=== PATIENT | female | born 1975 | race Two or more races ===

== ENCOUNTER 2017-03-11 12:33 | Day surgery (SDC) | payer BC ==
[~2017-03-11] VITALS: Ht 157.5 cm; Wt 60.3 kg
[2017-03-11] MEDS ORDERED: OMEP10CA4 PO (14:03)
[2017-03-11] MEDS ORDERED: LEVO25TA53 PO (14:03)
[2017-03-11 14:07] VITALS: Ht 157.5 cm; Wt 60.3 kg
[2017-03-11 14:29] VITALS: BP 110/67; PULSE 65; RESP 18
[2017-03-11] MEDS ORDERED: PROPOFOL 40 ML ONE (15:17)
[2017-03-11] MEDS ORDERED: FENTAnyl 50 MCG/ML VIAL ONE (15:17)
[2017-03-11] MEDS ORDERED: LIDOCAINE 100 MG SYRINGE ONE (15:17)
[2017-03-11 16:25] VITALS: BP 107/66; PULSE 66; RESP 17
--- NOTE | 2017-03-11 18:41 | GILP ---
DATE OF PROCEDURE: 03/11/2017 PROCEDURE: Esophagogastroduodenoscopy with biopsies. BRIEF HISTORY AND INDICATIONS: The patient is being evaluated for dyspepsia and episodes of melena. PREMEDICATION: Monitored anesthesia care by anesthesiologist. SURGEON: Tyrone Scott MD. INSTRUMENT USED: Olympus endoscope TECHNIQUE: After informed consent, with the patient/relatives understanding the procedure, its indic ations, potential risks and complications, including but not limited to: allergic reaction, bleeding , perforation or infection, and after all pertinent questions were answered to the patients satisfac tion, the patient/relatives signed witnessed informed consent. Following this, premedication was administered slowly IV push under careful cardiovascular and respi ratory monitoring with pulse oximetry, automatic blood pressure and surveillance monitor. Once the sedative effect was achieved the patient was place in the left lateral decubitus, the panen doscope was introduced and advanced under visual control. Careful examination of the upper gastrointestinal tract, both on insertion as well as withdrawal of the instrument disclosed the following findings: ESOPHAGUS: The mucosa of the entire esophagus appears within normal limits. There is no evidence of esophagitis, varices, neoplasm or stricture. No hiatal hernia identified. STOMACH: Upon entrance to the stomach air was insufflated, the gastric castro distended normally. The mucosa of the fundus, body, and antrum of the stomach was carefully examined and shows erythema and edema of the mucosa to a moderate degree. Biopsies were obtained to rule out H pylori infection. PYLORUS: The pylorus is patent and within normal limits, with no evidence of gastric outlet obstruct ion. DUODENUM: The duodenal bulb is unremarkable. The second portion of the duodenum appears somewhat at rophic. Biopsies were obtained to rule out celiac disease. The instrument was then withdrawn. We reexamined the mucosa in detail. No additional abnormalities were noted, The patient tolerated the procedure well and was transfer out of the endoscopy suite awake, and in g ood condition to continue recovery under observation IMPRESSION: 1. Gastritis, rule out Helicobacter pylori infection, biopsies obtained. 2. Rule out celiac disease, biopsies obtained. PLAN: The patient will be treated with PPIs. Further recommendation will depend on her clinical co urse as well as review of biopsies. Dictated By: TYRONE SCOTT MS/DAPHNE Conf#: [id number] DID#: [id number]
--- NOTE | 2017-03-11 18:53 | GILP ---
DATE OF PROCEDURE: 03/11/2017 DATE: 03/11/2017 NAME OF PROCEDURE: Colonoscopy with biopsies. SURGEON: Tyrone Scott MD. BRIEF HISTORY AND INDICATIONS: The patient with episodes of hematochezia. PREMEDICATION: Monitored anesthesia care by anesthesiologist. INSTRUMENT USED: Olympus colonoscope. PREPARATION: Adequate. TECHNIQUE: After informed consent, with the patient/relatives understanding the procedure, its indic ations potential risks and complications, including but not limited to: allergic reaction, bleeding, perforation, infection, missed lesions and after all pertinent questions were answered to the patie nt's satisfaction, the patient/relatives signed the witnessed informed consent. Following this, premedication was administered slowly IV push by under careful cardiovascular and re spiratory monitoring with pulse oximetry, automatic blood pressure and clinic manager. Once the sedativ e effect was achieved, the patient was placed in the left lateral decubitus position, digital rectal examination was performed. The colonoscope was then introduced and advanced under visual control th roughout all segments of the colon including: the rectum, sigmoid, descending colon, splenic flexure , transverse colon, hepatic flexure, ascending colon and finally reaching the cecum which was clearl y identified by transillumination, finger indentation and the ileocecal valve. Careful examination o f the mucosa of the lower gastrointestinal tract both on insertion as well as withdrawal of the inst rument disclosed the following findings: Rectal Examination: No evidence of perirectal disease, no masses. Colonic Mucosa: The colonic mucosa entirely unremarkable throughout. The ileocecal valve was clearl y identified and appears unremarkable. The instrument was withdrawn. On withdrawal of the instrume nt, random biopsies were obtained in the right and left side of the colon to rule out microscopic, l ymphocytic or collagenous colitis. Moderate sized internal hemorrhoids are noted on withdrawal of t he instrument through the anal canal. The instrument was then withdrawn, the patient tolerated the procedure well and was transferred out of the Endoscopy Suite awake and in good condition to continue recovery under observation. IMPRESSION: 1. Normal colonic mucosa to cecum, rule out microscopic lymphocytic or collagenous colitis. 2. Moderate sized internal hemorrhoids. PLAN: The patient will follow up as an outpatient, a Hemoccult stool testing is recommended. [facility]. Dictated By: TYRONE SCOTT MS/NTS Conf#: [id number] [facility]#: [id number]
== END 2017-03-11 16:37 | disposition home or self-care (01) ==
LOC: GIL 12:33
PROVIDERS: ATTEND Internal Medicine Gastroenterology
DX: K92.1 Melena (principal); K29.70 Gastritis, unspecified, without bleeding; K64.8 Other hemorrhoids; E03.9 Hypothyroidism, unspecified
CPT/HCPCS: 43239; 45380; 84703; 88305; 88312; J2001; J3010; Z7610